=== PATIENT | female | born 1990 | race Caucasian/White ===

== ENCOUNTER 2018-02-04 15:57 | Emergency (ER) | payer OTHER ==
[~2018-02-04] VITALS: Ht 177.8 cm; Wt 81.0 kg
[2018-02-04 16:10] VITALS: BP 134/69
[2018-02-04] MEDS ORDERED: CYCL-1 PO (17:45)
== END 2018-02-04 18:04 | disposition home or self-care (01) ==
LOC: ER 15:59
DX: M54.5 Low back pain (principal)
CPT/HCPCS: 99283